=== PATIENT | male | born 1980 | race Caucasian/White ===

== ENCOUNTER 2017-06-28 17:44 | Emergency (ER) | payer SELFPAY ==
--- NOTE | 2017-06-28 18:07 | EDM.PDOC ---
ED HPI GENERAL MEDICAL PROBLEM - General Chief Complaint: Cardiovascular Problem Stated Complaint: check blood pressure Time Seen by Provider: 06/28/17 17:59 Source of Information: Reports: Patient History Limitations: Reports: No Limitations - History of Present Illness INITIAL COMMENTS - FREE TEXT/NARRATIVE: 36-year-old male attends the clinic for primary assessment of his blood pressure. At home he got 159/160 he has a mild headache. Perhaps very mild nausea. systolic over 99 diastolic readings. It's unclear how may times he checked his blood pressure at his parents house today. He is not known to be hypertensive. He states his blood pressure usually is in the 140s but not sure what his diastolics run out. 635 he is mildly obese. She drinks alcohol frequently. He has a history of heartburn intermittent central chest pains. Does use Tums and Rolaids. Denies any burping or belching. I think he became concerned today when he had anterior chest pains associated with an elevated blood pressure. Used to smoke cigarettes but but quit about 6 months ago. Denies any use of street drugs. Onset: Today, Gradual Onset Date: 06/28/17 Duration: Hour(s):, Other (Never been told her diagnosed with blood pressure issues before.) Location: Reports: Chest (Mild anterior intermittent chest pains.) Severity: Mild Improves with: Reports: None Worsens with: Reports: None Context: Denies: Activity, Exercise, Lifting, Sick Contact, Trauma, Other Associated Symptoms: Reports: Chest Pain (Mild anterior chest wall pain.). 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 (see below) (Takes Xanax 0.25 mg 3 times a day when necessary.) - Related Data Allergies Allergy/AdvReac Type Severity Reaction Status Date / Time No Known Allergies Allergy Verified 06/28/17 17:58 Home Meds: Home Meds ALPRAZolam [Alprazolam] 1 dose PO ASDIRECTED PRN 06/28/17 [History] Sertraline [Zoloft] 0 mg PO DAILY 06/28/17 [History] Past Medical History - Past Health History Medical/Surgical History: Denies Medical/Surgical History Psychiatric History: Reports: Anxiety (Generalized anxiety disorder.), Panic Attack Social & Family History - Tobacco Use Smoking Status *Q: Former Smoker Years of Tobacco use: 10 Used Tobacco, but Quit: Yes Month/Year Tobacco Last Used: 6 months ago - Alcohol Use Alcohol Use History: Yes Days Per Week of Alcohol Use: 7 - Recreational Drug Use Recreational Drug Use: No - Living Situation & Occupation Living situation: Reports: Single Occupation: Employed ED ROS GENERAL - Review of Systems Review Of Systems: See Below Constitutional: Denies: Fever, Chills, Malaise, Weakness, Fatigue, Night Sweats , Diaphoresis, Decreased Appetite, Weight Loss HEENT: Reports: Glasses Respiratory: Reports: No Symptoms Cardiovascular: Reports: Chest Pain (Intermittent central chest pains.), Blood Pressure Problem ( Adrian comes and goes.). Denies: Claudication, Dyspnea on Exertion, Edema, Lightheadedness, Orthopnea ( see history of present illness ), Palpitations Endocrine: Reports: No Symptoms GI/Abdominal: Reports: No Symptoms : Reports: No Symptoms Musculoskeletal: Reports: No Symptoms Skin: Reports: No Symptoms Neurological: Reports: No Symptoms Psychiatric: Reports: No Symptoms Hematologic/Lymphatic: Reports: No Symptoms Immunologic: Reports: No Symptoms ED EXAM, GENERAL - Physical Exam Exam: See Below Exam Limited By: No Limitations General Appearance: Alert, Anxious, Mild Distress, Other (Blood pressure on initial assessment is 156/92.) Eye Exam: Bilateral Eye: Normal Inspection Head: Atraumatic, Normocephalic Neck: Normal Inspection, Supple, Non-Tender, Full Range of Motion. No: Carotid Bruit, Lymphadenopathy (L), Lymphadenopathy (R) Respiratory/Chest: No Respiratory Distress, Lungs Clear, Normal Breath Sounds, No Accessory Muscle Use Cardiovascular: Normal Peripheral Pulses, Regular Rate, Rhythm, No Edema, No Gallop, No Murmur, No Rub Peripheral Pulses: 3+: Posterior Tibial (L), Posterior Tibial (R), Dorsalis Pedis (L), Dorsalis Pedis (R) GI/Abdominal: Normal Bowel Sounds, Soft, Non-Tender, No Organomegaly, No Distention, No Abnormal Bruit, No Mass, Pelvis Stable Back Exam: Normal Inspection, Full Range of Motion. No: CVA Tenderness (L), CVA Tenderness (R) Extremities: Normal Inspection, Normal Range of Motion, Non-Tender, No Pedal Edema Neurological: Alert, Oriented, CN II-XII Intact, Normal Cognition Psychiatric: Anxious Skin Exam: Warm, Dry, Intact (Mildly anxious.), Normal Color, No Rash EKG INTERPRETATION EKG Date: 06/28/17 Time: 18:15 Rhythm: NSR Rate (Beats/Min): 88 [place]: LAD-Left [place] Deviation (Mild left axis deviation of -4) P-Wave: Present QRS: RBBB (Incomplete right bundle branch block pattern) ST-T: Normal QT: Normal EKG Interpretation Comments: Borderline ECG Course - Vital Signs Last Recorded V/S: Last Vital Signs Temp 36.6 C 06/28/17 17:52 Pulse 97 06/28/17 17:52 Resp 18 06/28/17 17:52 BP 156/92 H 06/28/17 17:52 Pulse Ox 96 06/28/17 17:52 - Orders/Labs/Meds Orders: Active Orders 24 hr Category Date Time Status EKG Documentation Completion [RC] STAT Care 06/28/17 18:07 Active Chest 1V Frontal [CR] Stat Exams 06/28/17 18:07 Taken - Radiology Interpretation Free Text/Narrative:: 36-year-old male attends the ED with concerns about elevated blood pressure at home. His parents home his BP was 159/99. He is not known to be hypertensive. He 's been having associated intermittent retrosternal chest pains which continent come and go. He has an underlying anxiety disorder and of course this is provoked a good deal of anxiety. His cough or sputum production. No fever or chills. Does have a history of GERD for which he takes antacids for intermittently and is on omeprazole daily. Initial BP here is 156/62. Examination is otherwise normal. Plan ECG and one view chest x-ray to be done - Re-Assessments/Exams Free Text/Narrative Re-Assessment/Exam: 06/28/17 18:32 ECG shows sinus rhythm at 88/m. There is a incomplete right bundle branch block pattern otherwise normal ECG. Single portable chest x-ray carried out. It reveals slight hyperinflation of his lung hagen but normal cardiac silhouette and lungs are clear. Current BP is 161/83. 06/28/17 18:52 BP did come down to 148/86. Currently is 154/91 indicating he does have mild hypertension. However with his underlying anxiety disorder I'm reluctant to start him on medication at this time as he will likely be on the rest of his life his ear if he has significant hypertension. Therefore advised him to get it checked periodically both outside his parents home pharmacies [facility] etc. and write down the time date and the numbers for. Of 2 weeks and then get back into see his family physician to establish whether or not he needs blood pressure medication. Departure - Departure Time of Disposition: 19:07 Disposition: Home, Self-Care 01 Condition: Fair Clinical Impression: Mild essential hypertension Referrals: PCP,None [Primary Care Provider] - Forms: ED Department Discharge Additional Instructions: ED HPI GENERAL MEDICAL PROBLEM - General Chief Complaint: Cardiovascular Problem Stated Complaint: check blood pressure Time Seen by Provider: 06/28/17 17:59 Source of Information: Reports: Patient History Limitations: Reports: No Limitations - History of Present Illness INITIAL COMMENTS - FREE TEXT/NARRATIVE: 36-year-old male attends the clinic for primary assessment of his blood pressure. At home he got 159/160 he has a mild headache. Perhaps very mild nausea. systolic over 99 diastolic readings. It's unclear how may times he checked his blood pressure at his parents house today. He is not known to be hypertensive. He states his blood pressure usually is in the 140s but not sure what his diastolics run out. 635 he is mildly obese. She drinks alcohol frequently. He has a history of heartburn intermittent central chest pains. Does use Tums and Rolaids. Denies any burping or belching. I think he became concerned today when he had anterior chest pains associated with an elevated blood pressure. Used to smoke cigarettes but but quit about 6 months ago. Denies any use of street drugs. Onset: Today, Gradual Onset Date: 06/28/17 Duration: Hour(s):, Other (Never been told her diagnosed with blood pressure issues before.) Location: Reports: Chest (Mild anterior intermittent chest pains.) Severity: Mild Improves with: Reports: None Worsens with: Reports: None Context: Denies: Activity, Exercise, Lifting, Sick Contact, Trauma, Other Associated Symptoms: Reports: Chest Pain (Mild anterior chest wall pain.). 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 (see below) (Takes Xanax 0.25 mg 3 times a day when necessary.) - Related Data Allergies Allergy/AdvReac Type Severity Reaction Status Date / Time No Known Allergies Allergy Verified 06/28/17 17:58 Home Meds: Home Meds ALPRAZolam [Alprazolam] 1 dose PO ASDIRECTED PRN 06/28/17 [History] Sertraline [Zoloft] 0 mg PO DAILY 06/28/17 [History] Past Medical History - Past Health History Medical/Surgical History: Denies Medical/Surgical History Psychiatric History: Reports: Anxiety (Generalized anxiety disorder.), Panic Attack Social & Family History - Tobacco Use Smoking Status *Q: Former Smoker Years of Tobacco use: 10 Used Tobacco, but Quit: Yes Month/Year Tobacco Last Used: 6 months ago - Alcohol Use Alcohol Use History: Yes Days Per Week of Alcohol Use: 7 - Recreational Drug Use Recreational Drug Use: No - Living Situation & Occupation Living situation: Reports: Single Occupation: Employed ED ROS GENERAL - Review of Systems Review Of Systems: See Below Constitutional: Denies: Fever, Chills, Malaise, Weakness, Fatigue, Night Sweats , Diaphoresis, Decreased Appetite, Weight Loss HEENT: Reports: Glasses Respiratory: Reports: No Symptoms Cardiovascular: Reports: Chest Pain (Intermittent central chest pains.), Blood Pressure Problem ( Adrian comes and goes.). Denies: Claudication, Dyspnea on Exertion, Edema, Lightheadedness, Orthopnea ( see history of present illness ), Palpitations Endocrine: Reports: No Symptoms GI/Abdominal: Reports: No Symptoms : Reports: No Symptoms Musculoskeletal: Reports: No Symptoms Skin: Reports: No Symptoms Neurological: Reports: No Symptoms Psychiatric: Reports: No Symptoms Hematologic/Lymphatic: Reports: No Symptoms Immunologic: Reports: No Symptoms ED EXAM, GENERAL - Physical Exam Exam: See Below Exam Limited By: No Limitations General Appearance: Alert, Anxious, Mild Distress, Other (Blood pressure on initial assessment is 156/92.) Eye Exam: Bilateral Eye: Normal Inspection Head: Atraumatic, Normocephalic Neck: Normal Inspection, Supple, Non-Tender, Full Range of Motion. No: Carotid Bruit, Lymphadenopathy (L), Lymphadenopathy (R) Respiratory/Chest: No Respiratory Distress, Lungs Clear, Normal Breath Sounds, No Accessory Muscle Use Cardiovascular: Normal Peripheral Pulses, Regular Rate, Rhythm, No Edema, No Gallop, No Murmur, No Rub Peripheral Pulses: 3+: Posterior Tibial (L), Posterior Tibial (R), Dorsalis Pedis (L), Dorsalis Pedis (R) GI/Abdominal: Normal Bowel Sounds, Soft, Non-Tender, No Organomegaly, No Distention, No Abnormal Bruit, No Mass, Pelvis Stable Back Exam: Normal Inspection, Full Range of Motion. No: CVA Tenderness (L), CVA Tenderness (R) Extremities: Normal Inspection, Normal Range of Motion, Non-Tender, No Pedal Edema Neurological: Alert, Oriented, CN II-XII Intact, Normal Cognition Psychiatric: Anxious Skin Exam: Warm, Dry, Intact (Mildly anxious.), Normal Color, No Rash EKG INTERPRETATION EKG Date: 06/28/17 Time: 18:15 Rhythm: NSR Rate (Beats/Min): 88 [place]: LAD-Left [place] Deviation (Mild left axis deviation of -4) P-Wave: Present QRS: RBBB (Incomplete right bundle branch block pattern) ST-T: Normal QT: Normal EKG Interpretation Comments: Borderline ECG Course - Vital Signs Last Recorded V/S: Last Vital Signs Temp 36.6 C 06/28/17 17:52 Pulse 97 06/28/17 17:52 Resp 18 06/28/17 17:52 BP 156/92 H 06/28/17 17:52 Pulse Ox 96 06/28/17 17:52 - Orders/Labs/Meds Orders: Active Orders 24 hr Category Date Time Status EKG Documentation Completion [RC] STAT Care 06/28/17 18:07 Active Chest 1V Frontal [CR] Stat Exams 06/28/17 18:07 Taken - Radiology Interpretation Free Text/Narrative:: 36-year-old male attends the ED with concerns about elevated blood pressure at home. His parents home his BP was 159/99. He is not known to be hypertensive. He 's been having associated intermittent retrosternal chest pains which continent come and go. He has an underlying anxiety disorder and of course this is provoked a good deal of anxiety. His cough or sputum production. No fever or chills. Does have a history of GERD for which he takes antacids for intermittently and is on omeprazole daily. Initial BP here is 156/62. Examination is otherwise normal. Plan ECG and one view chest x-ray to be done - Re-Assessments/Exams Free Text/Narrative Re-Assessment/Exam: 06/28/17 18:32 ECG shows sinus rhythm at 88/m. There is a incomplete right bundle branch block pattern otherwise normal ECG. Single portable chest x-ray carried out. It reveals slight hyperinflation of his lung hagen but normal cardiac silhouette and lungs are clear. Current BP is 161/83. 06/28/17 18:52 BP did come down to 148/86. Rarely is 154/91 indicating he does have mild hypertension. However with his underlying anxiety disorder I'm reluctant to start him on medication at this time as he will likely be on the rest of his life his ear if he has significant hypertension. Therefore advised him to get it checked periodically both outside his parents home pharmacies [facility] etc. and write down the time date and the numbers for. Of 2 weeks and then get back into see his family physician to establish whether or not he needs blood pressure medication. Departure - Departure Disposition: Home, Self-Care 01 Condition: Fair Clinical Impression: Mild essential hypertension Referrals: PCP,None [Primary Care Provider] - Forms: ED Department Discharge - My Orders Last 24 Hours: My Active Orders 06/28/17 18:07 EKG Documentation Completion [RC] STAT Chest 1V Frontal [CR] Stat - Assessment/Plan Last 24 Hours: My Active Orders 06/28/17 18:07 EKG Documentation Completion [RC] STAT Chest 1V Frontal [CR] Stat Evaluation the emergency room today in regards to noted elevated blood pressure actually parents home today. The pressure was as high as 159/160 on the top number and 99 on the bottom number. Here in the hospital blood pressure is variable which is normal. It did come down to as low as 148 on the top number and as low as 83 on the bottom. Her tracing and chest x-ray were all normal. He does appear this time that she do have mildly elevated blood pressure. My suggestion is to have your blood pressure checked 3 or 4 times a week on the basis of either at home at [facility] to relieve the pharmacies write down the date time of day and the numbers that you get. After 2 weeks I would suggest follow-up with your personal physician to see whether or not he will require blood pressure medication. Care Plan Goals: Suggest checking her blood pressure at random places such as [employer], pharmacies and that her parents home and rating down the numbers in a book for the next couple weeks and then followed up with Dr. Demarco or Dr. Puente to see if you need blood pressure medication. Also a concerted effort to lose weight especially even 10 pounds can make a difference in your blood pressure readings. Suggest follow up in two weeks time with either Dr Pugh--[phone] [address] Dr Puente -- [phone] for blood preasure readings.. - My Orders Last 24 Hours: My Active Orders 06/28/17 18:07 EKG Documentation Completion [RC] STAT Chest 1V Frontal [CR] Stat - Assessment/Plan Last 24 Hours: My Active Orders 06/28/17 18:07 EKG Documentation Completion [RC] STAT Chest 1V Frontal [CR] Stat
[2017-06-28 18:53] VITALS: BP 154/91
--- NOTE | 2017-06-29 11:11 | CR ---
Chest: Portable view of the chest was obtained. Comparison: No prior chest x-ray. Heart size and mediastinum are normal. Lungs are clear. Bony structures are unremarkable for the patient's age. Impression: 1. Nothing acute is seen on portable chest x-ray. Diagnostic code #1
== END 2017-06-28 19:20 | disposition home or self-care (01) ==
LOC: JD.ED 17:44
DX: I10 Essential (primary) hypertension (principal); F41.9 Anxiety disorder, unspecified; Z79.899 Other long term (current) drug therapy; Z87.891 Personal history of nicotine dependence
CPT/HCPCS: 71045; 71045-26; 93005; 99283; 99284-25

== ENCOUNTER 2021-09-14 21:47 | Emergency (ER) | payer SELFPAY ==
[2021-09-14] MEDS ORDERED: Ondansetron 4 MG/2 ML SDV IVPUSH ONE (22:00)
[2021-09-14] MEDS ORDERED: Sodium Chloride 0.9% 1,000 ML IV SCH (22:00)
[2021-09-14] MEDS ORDERED: HYDROmorphone 1 MG/ML Syringe IVPUSH STA (22:00)
[2021-09-14 22:02] VITALS: BP 160/94; PULSE 101
== END 2021-09-14 23:28 | disposition home or self-care (01) ==
LOC: JD.ED 21:47
DX: S39.011A Strain of muscle, fascia and tendon of abdomen, initial encounter (principal); F17.210 Nicotine dependence, cigarettes, uncomplicated
CPT/HCPCS: 36415; 74176; 80053; 81001; 85025; 96361; 96374; 96375; 99284; J1170; J2405; J7030; 99283